=== PATIENT | female | born 1955 | race Caucasian/White ===

== ENCOUNTER 2025-08-12 03:07 | Emergency (ER) | payer BC ==
[2025-08-12 03:50] LABS: #Basophils 0.06 10x3/uL (0.0-0.2); #Eosinophils 0.17 10x3/uL (0.0-0.5); #Monocytes 0.60 10x3/uL (0.0-1.1); #Neutrophils 5.32 10x3/uL (1.5-8.4); %Basophils 0.7 % (0.0-2.0); %Eosinophils 2.1 % (0.0-6.0); %Lymphocytes 24.5 % (18.0-47.0); %Monocytes 7.3 % (0.0-10.0); %Neutrophils 65.2 % (40.0-75.0); Hematocrit 38.6 % (34.9-44.5); Hemoglobin 13.0 g/dL (12.0-15.5); Mean Corpuscular Hemoglobin 29.2 pg (27.0-33.0); Mean Corpuscular Volume 86.7 fL (81.6-98.3); Platelet Count 252 10x3/uL (150-450); Red Blood Cell (RBC) Count 4.45 10x6/uL (3.90-5.03); White Blood Cell (WBC) Count 8.17 10x3/uL (3.5-10.5)
[2025-08-12 04:08] LABS: Troponin I Less than 0.010 ng/mL (< 0.028)
[2025-08-12 04:12] LABS: ALT (SGPT) 13 U/L (Less than 34); AST (SGOT) 21 U/L (11-34); Albumin 3.8 g/dL (3.1-4.5); Alkaline Phosphatase 82 U/L (40-110); Anion Gap 17 mmol/L (10-20); BUN (Urea Nitrogen) 24 mg/dL (9.8-20.1); Bilirubin, Total 0.5 mg/dL (0.3-1.2); Calc. Creatinine Clearance 0 mL/min (70-130); Calcium 9.3 mg/dL (7.8-10.44); Carbon Dioxide 22 mmol/L (23-31); Chloride 103 mmol/L (98-107); Globulin 3.0 g/dL (2.4-3.5); Glucose 137 mg/dL (80-115); Lipase 35 U/L (8-78); Potassium 3.7 mmol/L (3.5-5.1); Sodium 138 mmol/L (136-145)
[2025-08-12 04:36] LABS: Glucose, Urine (Dipstick) Normal (Negative); Leukocyte Negative (Negative); Protein, Urine (Dipstick) Negative (Neg-Trace); Specific Gravity, Urine 1.010 (1.005-1.030)
[2025-08-12 04:46] LABS: CAUTI Indications for Culture Pelvic or flank pain; RBC/HPF 0-3 HPF (0-3); WBC/HPF 0-3 HPF (0-3)
[2025-08-12 04:47] LABS: Bacteria/HPF 2+ HPF (None Seen)
[2025-08-12 04:48] LABS: Urine Culture Reflex No No
[2025-08-12] MEDS ORDERED: Bupivacaine HCl 0.5%/Epinephrine 1:200,000/PF 30 ml Vial ONE (10:10)
[2025-08-12] MEDS ORDERED: Iopamidol 370 76% 100 ML VIAL ONE (10:44)
[2025-08-12] MEDS ORDERED: Lidocaine 1% PF 5 ML VIAL ONE (10:51)
[2025-08-12] MEDS ORDERED: Rocuronium Bromide 10 MG/ML (10ML VIAL) ONE (10:51)
[2025-08-12] MEDS ORDERED: PROPOFOL 20 ML ONE (10:51)
[2025-08-12] MEDS ORDERED: CEFAZOLIN 1 GM VIAL ONE (11:49)
[2025-08-12] MEDS ORDERED: Ketorolac Tromethamine 30 MG (1 mL) VIAL ONE (12:25)
[2025-08-12] MEDS ORDERED: SUGAMMADEX SODIUM 200 MG/2 ML VIAL ONE (12:25)
[2025-08-12] MEDS ORDERED: Ondansetron PF 4 MG/2 ML Vial ONE ×2 (12:25→13:14)
[2025-08-12] MEDS ORDERED: HYDROmorphone 0.5 MG/0.5 ML SYRINGE ONE (13:14)
== END 2025-08-12 14:46 | disposition home or self-care (01) ==
LOC: CSHERS 03:07
DX: K81.0 Acute cholecystitis (principal)
CPT/HCPCS: 36415; 71275; 74174; 76705; 80053; 81001; 83605; 83690; 84484; 85025; 88304; 93005; 94760; 96361; 96374; 96375; C1889; J0690; J1100; J1171; J1885; J2405; J2543; J2550; J2704; J3010; Q9967; S2900